=== PATIENT | male | born 1950 | race Caucasian/White ===

== ENCOUNTER 2022-08-24 10:39 | Emergency (ER) | payer OTHER ==
[~2022-08-24] VITALS: Ht 172.7 cm; Wt 80.7 kg
[2022-08-24] MEDS ORDERED: JANUVIA50 MG (11:06)
[2022-08-24] MEDS ORDERED: SYNTHROID75 MCG (11:06)
[2022-08-24] MEDS ORDERED: ELIQUIS5 MG (11:07)
[2022-08-24] MEDS ORDERED: AMLODIPINE-OLM1 EAC2 (11:07)
[2022-08-24] MEDS ORDERED: LIPITOR20 MG (11:07)
[2022-08-24] MEDS ORDERED: ECOTRIN81 MG (11:08)
[2022-08-24] MEDS ORDERED: FOLIC ACID0.8 M1 (11:08)
[2022-08-24] MEDS ORDERED: LISINOPRIL-HCT1 EACH (11:08)
[2022-08-24] MEDS ORDERED: CELEBREX200MG PO (14:50)
== END 2022-08-24 15:11 | disposition home or self-care (01) ==
LOC: ER 10:39
DX: S93.402A Sprain of unspecified ligament of left ankle, initial encounter (principal); S90.32XA Contusion of left foot, initial encounter; X58.XXXA Exposure to other specified factors, initial encounter; Y93.9 Activity, unspecified; Y92.832 Beach as the place of occurrence of the external cause; Y99.9 Unspecified external cause status

== ENCOUNTER 2024-01-21 09:20 | Outpatient (CLI) | payer OTHER ==
[~2024-01-21 09:20] MED LIST: AMLODIPINE-OLM1 EAC2; CELEBREX200MG PO; ECOTRIN81 MG; ELIQUIS5 MG; FOLIC ACID0.8 M1; JANUVIA50 MG; LIPITOR20 MG; LISINOPRIL-HCT1 EACH; SYNTHROID75 MCG
== END 2024-01-21 09:24 | disposition home or self-care (01) ==
LOC: SONOGRAMA 09:20
PROVIDERS: ATTEND Specialist
DX: M77.8 Other enthesopathies, not elsewhere classified (principal); M1A.9XX1 Chronic gout, unspecified, with tophus (tophi)

== ENCOUNTER 2024-01-23 11:04 | Outpatient (CLI) | payer OTHER | END 2024-01-23 11:15 | disposition home or self-care (01) | LOC: MRI 11:04 | PROVIDERS: ATTEND Specialist | DX: M67.80 Other specified disorders of synovium and tendon, unspecified site (principal); M65.80 Other synovitis and tenosynovitis, unspecified site; M77.8 Other enthesopathies, not elsewhere classified; M1A.9XX1 Chronic gout, unspecified, with tophus (tophi) | CPT/HCPCS: 73221 ==